=== PATIENT | female | born 1965 | race Caucasian/White ===

== ENCOUNTER 2016-12-08 20:39 | Emergency (ER) | payer BC ==
[2016-12-08] MEDS ORDERED: Sodium Chloride 0.9% 1,000 ML IV ONE (20:45)
[2016-12-08] MEDS ORDERED: Ondansetron 4 MG/2 ML SDV IVPUSH ONE (20:46)
[2016-12-08] MEDS ORDERED: Morphine 2 MG/ML Syringe IVPUSH ONE (20:46)
--- NOTE | 2016-12-08 21:06 | EDM.PDOC ---
ED HPI GENERAL MEDICAL PROBLEM - General Chief Complaint: ENT Problem Stated Complaint: JAW PAIN Time Seen by Provider: 12/08/16 21:00 Source of Information: Reports: Patient History Limitations: Reports: No limitations - History of Present Illness INITIAL COMMENTS - FREE TEXT/NARRATIVE: History of present illness: [51-year-old female presenting with acute right-sided jaw pain indicating that it's difficult for her of her mouth. Patient was a visitor with another patient in the ER just prior to this event and was visualized by staff without muscle spasm and shock, talking easily now patient had gone to eat at a local restaurant and felt a spasm in her neck and couldn't open her mouth easily.] Review of systems: As per history of present illness and below otherwise all systems reviewed and negative. Past medical history: As per history of present illness and as reviewed below otherwise noncontributory. Surgical history: As per history of present illness and as reviewed below otherwise noncontributory. Social history: No reported history of drug or alcohol abuse. Family history: As per history of present illness and as reviewed below otherwise noncontributory. Physical exam: HEENT: Atraumatic, normocephalic, pupils reactive, negative for conjunctival pallor or scleral icterus, mucous membranes moist, throat clear, neck supple, nontender, trachea midline. Bilateral ear canals red excoriated and swollen with out any presence of cerebral right ear by swollen mandible with obvious otitis externa with significant edema and narrowing of the canal. Lungs: Clear to auscultation, breath sounds equal bilaterally, chest nontender. Heart: S1S2, regular, negative for clicks, rubs, or JVD. Abdomen: Soft, nondistended, nontender. Negative for masses or hepatosplenomegaly. Negative for costovertebral tenderness. Pelvis: Stable nontender. Genitourinary: Deferred. Rectal: Deferred. Extremities: Atraumatic, negative for cords or calf pain. Neurovascular unremarkable. Neuro: Awake, alert, oriented. Cranial nerves II through XII unremarkable. Cerebellum unremarkable. Motor and sensory unremarkable throughout. Exam nonfocal. Diagnostics: [CBC, CMP, Troponin] Therapeutics: [IV fluid, morphine, Zofran, Toradol, or] Impression: [Otitis externa right ear] Plan: [Eardrops, antibiotics, steroid] Definitive disposition and diagnosis as appropriate pending reevaluation and review of above. right jaw pain and swelling Pain Score (Numeric/FACES): 10 - Related Data Allergies Allergy/AdvReac Type Severity Reaction Status Date / Time aspirin Allergy Rash Verified 12/08/16 20:41 iodine Allergy Rash Verified 12/08/16 20:41 meperidine [From Demerol] AdvReac Agitation Verified 12/08/16 20:41 Home Meds: Home Meds Cyanocobalamin (Vitamin B12) [Vitamin B12] 12/08/16 [History] DULoxetine [Cymbalta] 12/08/16 [History] Ergocalciferol (Vitamin D2) [Vitamin D] 12/08/16 [History] Gabapentin [Neurontin] 12/08/16 [History] Levothyroxine [Synthroid] 12/08/16 [History] Pravastatin [Pravachol] 12/08/16 [History] ED ROS GENERAL - Review of Systems Review Of Systems: See Below (See history of present illness) ED EXAM, GENERAL - Physical Exam Exam: See Below (The history of present illness) Course - Vital Signs Last Recorded V/S: Last Vital Signs Temp 36.2 C 12/08/16 20:42 Pulse 71 12/08/16 22:10 Resp 16 12/08/16 22:10 BP 113/71 12/08/16 22:10 Pulse Ox 98 12/08/16 22:10 - Orders/Labs/Meds Orders: Active Orders 24 hr Category Date Time Status EKG Documentation Completion [RC] STAT Care 12/08/16 20:47 Active Labs: Laboratory Tests 12/08/16 12/08/16 12/08/16 Range/Units 21:00 21:00 21:00 WBC 17.16 H (4.0-11.0) K/uL RBC 4.92 (4.30-5.90) M/uL Hgb 14.5 (12.0-16.0) g/dL Hct 44.1 (36.0-46.0) % MCV 89.6 (80.0-98.0) fL MCH 29.5 (27.0-32.0) pg MCHC 32.9 (31.0-37.0) g/dL RDW Std Deviation 47.5 (28.0-62.0) fl RDW Coeff of Magda 15 (11.0-15.0) % Plt Count 486 H (150-400) K/uL MPV 9.80 (7.40-12.00) fL Neut % (Auto) 34.4 L (48.0-80.0) % Lymph % (Auto) 48.6 H (16.0-40.0) % [place] % (Auto) 14.0 (0.0-15.0) % Eos % (Auto) 2.5 (0.0-7.0) % Baso % (Auto) 0.5 (0.0-1.5) % Neut # (Auto) 5.9 H (1.4-5.7) K/uL Lymph # (Auto) 8.3 H (0.6-2.4) K/uL [place] # (Auto) 2.4 H (0.0-0.8) K/uL Eos # (Auto) 0.4 (0.0-0.7) K/uL Baso # (Auto) 0.1 (0.0-0.1) K/uL Nucleated RBC % 0.0 /100WBC Nucleated RBCs # 0 K/uL Lactate (0.20-2.00) mmol/L Sodium 140 (136-146) mmol/L Potassium 3.5 (3.5-5.1) mmol/L Chloride 109 (98-110) mmol/L Carbon Dioxide 20 L (21-31) mmol/L BUN 10 (6.0-23.0) mg/dL Creatinine 0.8 (0.6-1.5) mg/dL Est Cr Clr Drug Dosing 75.70 mL/min Estimated GFR (MDRD) > 60.0 ml/min Glucose 128 H (60-110) mg/dL Calcium 9.1 (8.8-10.8) mg/dL Total Bilirubin 0.6 (0.1-1.5) mg/dL AST 23 (5-40) IU/L ALT 15 (8-54) IU/L Alkaline Phosphatase 93 (40-150) Troponin I < 0.10 (0.0-0.29) NG/ML Total Protein 7.3 (6.0-8.0) g/dL Albumin 4.3 (3.5-5.0) g/dL Globulin 3.0 (2.0-3.5) g/dL Albumin/Globulin Ratio 1.4 (1.3-2.8) 12/08/16 Range/Units 22:00 WBC (4.0-11.0) K/uL RBC (4.30-5.90) M/uL Hgb (12.0-16.0) g/dL Hct (36.0-46.0) % MCV (80.0-98.0) fL MCH (27.0-32.0) pg MCHC (31.0-37.0) g/dL RDW Std Deviation (28.0-62.0) fl RDW Coeff of Magda (11.0-15.0) % Plt Count (150-400) K/uL MPV (7.40-12.00) fL Neut % (Auto) (48.0-80.0) % Lymph % (Auto) (16.0-40.0) % [place] % (Auto) (0.0-15.0) % Eos % (Auto) (0.0-7.0) % Baso % (Auto) (0.0-1.5) % Neut # (Auto) (1.4-5.7) K/uL Lymph # (Auto) (0.6-2.4) K/uL [place] # (Auto) (0.0-0.8) K/uL Eos # (Auto) (0.0-0.7) K/uL Baso # (Auto) (0.0-0.1) K/uL Nucleated RBC % /100WBC Nucleated RBCs # K/uL Lactate 1.6 (0.20-2.00) mmol/L Sodium (136-146) mmol/L Potassium (3.5-5.1) mmol/L Chloride (98-110) mmol/L Carbon Dioxide (21-31) mmol/L BUN (6.0-23.0) mg/dL Creatinine (0.6-1.5) mg/dL Est Cr Clr Drug Dosing mL/min Estimated GFR (MDRD) ml/min Glucose (60-110) mg/dL Calcium (8.8-10.8) mg/dL Total Bilirubin (0.1-1.5) mg/dL AST (5-40) IU/L ALT (8-54) IU/L Alkaline Phosphatase (40-150) Troponin I (0.0-0.29) NG/ML Total Protein (6.0-8.0) g/dL Albumin (3.5-5.0) g/dL Globulin (2.0-3.5) g/dL Albumin/Globulin Ratio (1.3-2.8) Meds: Medications Discontinued Medications Generic Name Dose Route Start Last Admin Trade Name Freq PRN Reason Stop Dose Admin Sodium Chloride 1,000 mls @ 999 mls/hr 12/08/16 20:45 12/08/16 20:58 Normal Saline IV 12/08/16 21:45 999 mls/hr STAT ONE Administration Morphine Sulfate 2 mg 12/08/16 20:46 12/08/16 20:59 Morphine IVPUSH 12/08/16 20:47 2 mg ONETIME ONE Administration Ondansetron HCl 8 mg 12/08/16 20:46 12/08/16 20:59 Zofran IVPUSH 12/08/16 20:47 8 mg ONETIME ONE Administration Orphenadrine Citrate 60 mg 12/08/16 21:00 12/08/16 21:03 Norflex IM 12/08/16 21:01 60 mg ONETIME ONE Administration Departure - Departure Time of Disposition: 22:25 Disposition: Home, Self-Care 01 Condition: good Clinical Impression: Otitis externa Referrals: PCP,None [Primary Care Provider] - Forms: ED Department Discharge Additional Instructions: The following information is given to patients seen in the emergency department who are being discharged to home. This information is to outline your options for follow-up care. We provide all patients seen in our emergency department with a follow-up referral. The need for follow-up, as well as the timing and circumstances, are variable depending upon the specifics of your emergency department visit. If you don't have a primary care physician on staff, we will provide you with a referral. We always advise you to contact your personal physician following an emergency department visit to inform them of the circumstance of the visit and for follow-up with them and/or the need for any referrals to a consulting specialist. The emergency department will also refer you to a specialist when appropriate. This referral assures that you have the opportunity for follow-up care with a specialist. All of these measure are taken in an effort to provide you with optimal care, which includes your follow-up. Under all circumstances we always encourage you to contact your private physician who remains a resource for coordinating your care. When calling for follow-up care, please make the office aware that this follow-up is from your recent emergency room visit. If for any reason you are refused follow-up, please contact the [facility] Emergency Department at and asked to speak to the emergency department charge nurse. Take medication as draped Followup with PCP 1-2 days Return to ED as needed as - My Orders Last 24 Hours: My Active Orders 12/08/16 20:47 EKG Documentation Completion [RC] STAT - Assessment/Plan Last 24 Hours: My Active Orders 12/08/16 20:47 EKG Documentation Completion [RC] STAT
[2016-12-08 21:31] LABS: CHLORIDE,CL 109 mmol/L (98-110); SODIUM,NA 140 mmol/L (136-146)
[2016-12-08 22:45] VITALS: BP 111/65
== END 2016-12-08 22:44 | disposition home or self-care (01) ==
LOC: MW.ED 20:39
DX: H60.93 Unspecified otitis externa, bilateral (principal); Z79.82 Long term (current) use of aspirin
CPT/HCPCS: 36415; 80053; 83605; 84484; 85025; 93005; 96361; 96372; 96374; 96375; 99283; J2270; J2360; J2405; J7040; 99284